=== PATIENT | female | born 1960 | race African-American/Black ===

== ENCOUNTER 2017-11-30 23:30 | Inpatient (IN) | payer MEDICAID, OTHER ==
[~2017-11-30] VITALS: Ht 175.3 cm; Wt 116.3 kg
[2017-12-01] VITALS (8 sets, daily range): BP systolic 93–131; BP diastolic 58–76
[2017-12-01] MEDS ORDERED: MORPHINE SULFATE 4 MG/ML CPJ (NOT FOR IM USE) IV SCH (00:13)
[2017-12-01] MEDS ORDERED: ACETAMINOPHEN 650MG SUPP PR SCH (00:13)
[2017-12-01] MEDS ORDERED: ONDANSETRON HCL 4MG/2ML INJ IV SCH (00:13)
[2017-12-01] MEDS ORDERED: SODIUM CHLORIDE 0.9% 1000ML BAG (SEPSIS BOLUS) IV ONE (00:15)
[2017-12-01] MEDS ORDERED: PIPERACILLIN/TAZ 3.375G PREMIX 50 ML IV SCH (00:45)
[2017-12-01] MEDS ORDERED: VANCOMYCIN 1 G PREMIX 200 ML IV SCH ×2 (00:46→10:30)
[2017-12-01 01:10] LABS: BG BASE EXCESS -0.4 mmol/L (-2.0-2.0); BG CARBOXYHEMOGLOBIN 0.3 % (0.5-1.5); BG DEOXYHEMOGLOBIN 3.8 % (0.0-5.0); BG FRACTION INSPIRED OXYGEN 21; BG HCO3 ACT 20.4 mmol/L (22.0-26.0); BG METHEMOGLOBIN 0.2 % (0.0-1.5); BG OXYGEN SATURATION 96.2 % (92.0-98.5); BG OXYHEMOGLOBIN 95.7 % (94.0-97.0); BG PCO2 23.2 mmHg (35.0-45.0); BG PH 7.561 (7.350-7.450); BG PO2 75.6 mmHg (75.0-100.0); BG SAMPLE SITE RIGHT RADIAL; BG TOTAL HEMOGLOBIN 11.8 g/dL (12.0-18.0); BG VENT MODE ROOM AIR
[2017-12-01 01:11] LABS: HEMATOCRIT. 32.6 % (36.0-48.0); HEMOGLOBIN. 10.7 g/dL (12.0-16.0); MEAN CORPUSCULAR HEMOGLOBIN 28.4 pg (28.0-32.0); MEAN CORPUSCULAR VOLUME 86.7 fL (81.0-99.0); MEAN PLATELET VOLUME 11.4 fl (7.4-10.4); PLATELET 325 x1000/uL (130-400); RED BLOOD CELL COUNT 3.76 mill/uL (4.2-5.4); RED CELL DISTRIBUTION WIDTH 17.9 % (11.6-14.6)
[2017-12-01 01:15] LABS: CHLORIDE 106 mEq/L (98-107); INR 1.1; PROTHROMBIN TIME 11.4 sec (9.1-11.1)
[2017-12-01 02:20] LABS: PLATELET ESTIMATE NORMAL
[2017-12-01] MEDS ORDERED: IOHEXOL-300 100 ML BOTTLE ONE (02:32)
[2017-12-01] MEDS ORDERED: ACETAMINOPHEN 325MG TABLET PO ONE (03:45)
[2017-12-01] MEDS ORDERED: FENTANYL CITRATE/PF 50MCG/ML 2ML VIAL IV ONE (05:30)
[2017-12-01] MEDS ORDERED: FENT1PAT3 TP (09:15)
[2017-12-01] MEDS ORDERED: MORP10DI10 PO (09:17)
[2017-12-01] MEDS ORDERED: INSU100I28 IV (09:18)
[2017-12-01] MEDS ORDERED: DIPHENHYDRAMINE 50MG/ML VIAL IV PRN (10:30)
[2017-12-01] MEDS ORDERED: DEXTROSE 50% WATER 50ML SYRINGE IV PRN (10:30)
[2017-12-01] MEDS ORDERED: ACETAMINOPHEN 650MG SUPP PR PRN (10:30)
[2017-12-01] MEDS ORDERED: IPRATROPIUM/ALBUTEROL 0.5-3(2.5)MG/3ML NEB INH PRN (10:30)
[2017-12-01] MEDS ORDERED: LORAZEPAM 0.5MG TABLET PO PRN (10:30)
[2017-12-01] MEDS ORDERED: BLOOD SUGAR DIAGNOSTIC STRIP TEST SCH (10:30)
[2017-12-01] MEDS: PANTOPRAZOLE SODIUM 40 MG/VIAL IV SCH (11:34)
[2017-12-01] MEDS: PIPERACILLIN/TAZ 3.375G PREMIX 50 ML IV SCH ×2 (12:12→20:22)
[2017-12-01] MEDS: BLOOD SUGAR DIAGNOSTIC STRIP TEST SCH ×3 (12:13→23:04)
[2017-12-01] MEDS: DEXT 5%/0.45% NACL KCL 20MEQ/L 1,000 ML IV SCH ×2 (12:57→23:04)
[2017-12-01] MEDS: VANCOMYCIN 1 G PREMIX 200 ML IV SCH ×2 (12:57→23:14)
[2017-12-01] MEDS: INSULIN LISPRO 100 UNITS/ML SUBCUT SCH ×3 (12:58→23:14)
[2017-12-01] MEDS ORDERED: INSULIN LISPRO 100 UNITS/ML SUBCUT SCH (13:00)
[2017-12-01] MEDS: ONDANSETRON HCL 4MG/2ML INJ IV PRN (22:58)
[2017-12-02] VITALS (13 sets, daily range): BP systolic 100–121; BP diastolic 51–85
[2017-12-02] MEDS: PIPERACILLIN/TAZ 3.375G PREMIX 50 ML IV SCH ×3 (03:04→20:55)
[2017-12-02] MEDS: INSULIN LISPRO 100 UNITS/ML SUBCUT SCH ×3 (06:00→18:00)
[2017-12-02] MEDS: BLOOD SUGAR DIAGNOSTIC STRIP TEST SCH ×3 (06:00→18:16)
[2017-12-02] MEDS: DEXT 5%/0.45% NACL KCL 20MEQ/L 1,000 ML IV SCH (10:01)
[2017-12-02] MEDS: PANTOPRAZOLE SODIUM 40 MG/VIAL IV SCH (10:02)
[2017-12-02] MEDS: MORPHINE SULFATE 4 MG/ML CPJ (NOT FOR IM USE) IV PRN ×3 (11:28→21:02)
[2017-12-02] MEDS: VANCOMYCIN 1 G PREMIX 200 ML IV SCH (12:38)
[2017-12-02 16:02] LABS: BASOPHILS % 0.5 % (0.0-2.0); EOSINOPHILS % 2.3 % (0.0-5.0); HEMATOCRIT. 30.2 % (36.0-48.0); HEMOGLOBIN. 9.9 g/dL (12.0-16.0); MEAN CORPUSCULAR HEMOGLOBIN 28.5 pg (28.0-32.0); MEAN CORPUSCULAR VOLUME 87.3 fL (81.0-99.0); MEAN PLATELET VOLUME 11.6 fl (7.4-10.4); MONOCYTES % 9.6 % (2.0-8.0); NEUTROPHILS % 73.6 % (40.0-76.0); PLATELET 266 x1000/uL (130-400); RED BLOOD CELL COUNT 3.46 mill/uL (4.2-5.4); RED CELL DISTRIBUTION WIDTH 18.5 % (11.6-14.6)
[2017-12-02 16:09] LABS: CHLORIDE 107 mEq/L (98-107)
[2017-12-02] MEDS: ONDANSETRON HCL 4MG/2ML INJ IV PRN (20:41)
[2017-12-03] MEDS ORDERED: PANTOPRAZOLE SODIUM 40 MG/VIAL IV SCH (09:00)
== END 2017-12-02 23:02 | disposition short-term general hospital (02) | DRG 872 ==
LOC: ER 23:30 → 5EST 12-01 05:15 → EDBEDREQ 12-01 05:22 → EDBEDREQTM 12-01 05:22 → ENRESERV 12-01 07:04 → 5EST 12-01 10:05
PROVIDERS: ADMIT Internal Medicine; ATTEND Internal Medicine
DX: A41.9 Sepsis, unspecified organism (principal); C25.9 Malignant neoplasm of pancreas, unspecified; E11.9 Type 2 diabetes mellitus without complications; I10 Essential (primary) hypertension; R13.10 Dysphagia, unspecified; Z82.49 Family history of ischemic heart disease and other diseases of the circulatory system; Z83.3 Family history of diabetes mellitus; Z88.8 Allergy status to other drugs, medicaments and biological substances
CPT/HCPCS: 36415; 36600; 71045; 74177; 80048; 80053; 82375; 82805; 82962; 83605; 83690; 85025; 85610; 87040; 87077; 87186; 93005; 96365; 96366; 96368; 96375; 99285; C9113; J1815; J2270; J2405; J2543; J3010; J3370; J7030; J7050; Q9967

== ENCOUNTER 2017-12-18 19:44 | Inpatient (IN) | payer OTHER ==
[~2017-12-18] VITALS: Ht 175.3 cm; Wt 97.1 kg
[2017-12-18] MEDS ORDERED: SODIUM CHLORIDE 0.9% 1,000 ML IV ONE (20:30)
[2017-12-18] MEDS ORDERED: VANCOMYCIN 1 G PREMIX 200 ML IV ONE (20:30)
[2017-12-18] MEDS ORDERED: SODIUM CHLORIDE 0.9% 1000ML BAG (SEPSIS BOLUS) IV ONE (20:30)
[2017-12-18] MEDS ORDERED: PIPERACILLIN/TAZ 3.375G PREMIX 50 ML IV ONE (20:30)
[2017-12-18] MEDS ORDERED: NOREPINEPHRINE 4 MG in DEXT 5% WATER 246 ML IV ONE (22:00)
[2017-12-18 22:01] LABS: BASOPHILS % 0.4 % (0.0-2.0); EOSINOPHILS % 0.4 % (0.0-5.0); HEMATOCRIT. 38.5 % (36.0-48.0); HEMOGLOBIN. 12.3 g/dL (12.0-16.0); LYMPHOCYTES % 15.5 % (20.0-50.0); MEAN CORPUSCULAR HEMOGLOBIN 27.7 pg (28.0-32.0); MEAN CORPUSCULAR VOLUME 86.8 fL (81.0-99.0); MEAN PLATELET VOLUME 12.6 fl (7.4-10.4); MONOCYTES % 6.8 % (2.0-8.0); NEUTROPHILS % 76.9 % (40.0-76.0); PLATELET 425 x1000/uL (130-400); RED BLOOD CELL COUNT 4.44 mill/uL (4.2-5.4); RED CELL DISTRIBUTION WIDTH 19.8 % (11.6-14.6)
[2017-12-18 22:05] LABS: CHLORIDE 88 mEq/L (98-107); CLARITY URINE TURBID (CLEAR); COLOR URINE ORANGE (YELLOW); KETONES URINE NEGATIVE (NEGATIVE); LEUKOCYTE ESTERASE URINE 1+ (NEGATIVE); NITRITE URINE POSITIVE (NEGATIVE); OCCULT BLOOD URINE TRACE (NEGATIVE); PROTEIN URINE 1+ (NEGATIVE); SPECIFIC GRAVITY URINE 1.022 (1.005-1.030); UROBILINOGEN URINE 0.2 E.U./dL (0.2-1.0)
[2017-12-18] MEDS ORDERED: NOREPINEPHRINE 4 MG in DEXT 5% WATER 246 ML IV NR (22:15)
[2017-12-18] MEDS ORDERED: ACETAMINOPHEN 325MG TABLET PO PRN (23:00)
[2017-12-18] MEDS ORDERED: ONDANSETRON HCL 4MG/2ML INJ IV PRN (23:00)
[2017-12-18 23:19] LABS: INR 1.9; PROTHROMBIN TIME 18.7 sec (9.1-11.1)
[2017-12-19] VITALS (86 sets, daily range): BP systolic 69–176; BP diastolic 30–95
[2017-12-19] MEDS: DEXT 5%/0.45% NACL 1000ML 1,000 ML IV SCH ×2 (03:16→13:39)
[2017-12-19] MEDS ORDERED: NOREPINEPHRINE 8 MG in DEXT 5% WATER 242 ML IV PRN (03:45)
[2017-12-19] MEDS: VANCOMYCIN 1 G PREMIX 200 ML IV SCH (05:13)
[2017-12-19] MEDS: PIPERACILLIN/TAZ 2.25G PREMIX 50 ML IV SCH ×3 (05:13→21:49)
[2017-12-19] MEDS ORDERED: PIPERACILLIN/TAZ 3.375G PREMIX 50 ML IV SCH (06:00)
[2017-12-19 06:26] LABS: BASOPHILS % 0.4 % (0.0-2.0); EOSINOPHILS % 0.3 % (0.0-5.0); HEMATOCRIT. 34.6 % (36.0-48.0); HEMOGLOBIN. 11.1 g/dL (12.0-16.0); LYMPHOCYTES % 9.2 % (20.0-50.0); MEAN CORPUSCULAR HEMOGLOBIN 27.6 pg (28.0-32.0); MEAN CORPUSCULAR VOLUME 85.9 fL (81.0-99.0); MEAN PLATELET VOLUME 12.8 fl (7.4-10.4); MONOCYTES % 5.5 % (2.0-8.0); NEUTROPHILS % 84.6 % (40.0-76.0); PLATELET 375 x1000/uL (130-400); RED BLOOD CELL COUNT 4.03 mill/uL (4.2-5.4); RED CELL DISTRIBUTION WIDTH 19.6 % (11.6-14.6)
[2017-12-19 07:00] LABS: CHLORIDE 89 mEq/L (98-107)
[2017-12-19] MEDS ORDERED: LIDOCAINE HCL 1% 10 MG/ML 10ML VIAL ONE (09:01)
[2017-12-19 10:05] LABS: INR 1.9; PARTIAL THROMBOPLASTIN TIME 33.2 sec (23.4-31.0); PROTHROMBIN TIME 18.7 sec (9.1-11.1)
[2017-12-19] MEDS ORDERED: PHYTONADIONE 10MG/ML AMP SUBCUT SCH (10:15)
[2017-12-19 11:29] LABS: HEPATITIS B CORE AB IGM NEGATIVE
[2017-12-19 11:30] LABS: HEPATITIS A AB IGM NEGATIVE (NEGATIVE)
[2017-12-19 12:09] LABS: HEPATITIS B SURFACE ANTIGEN NEGATIVE
[2017-12-19] MEDS ORDERED: DEXTROSE 50% WATER 50ML SYRINGE IV PRN (15:15)
[2017-12-19] MEDS ORDERED: BLOOD SUGAR DIAGNOSTIC STRIP TEST SCH (16:30)
[2017-12-19] MEDS ORDERED: INSULIN LISPRO 100 UNITS/ML SUBCUT SCH (17:00)
[2017-12-19] MEDS: INSULIN LISPRO 100 UNITS/ML SUBCUT SCH (23:24)
[2017-12-19] MEDS: BLOOD SUGAR DIAGNOSTIC STRIP TEST SCH (23:24)
[2017-12-20] VITALS (10 sets, daily range): BP systolic 87–136; BP diastolic 50–84
[2017-12-20] MEDS: DEXT 5%/0.45% NACL 1000ML 1,000 ML IV SCH ×3 (00:02→18:45)
[2017-12-20] MEDS: PIPERACILLIN/TAZ 2.25G PREMIX 50 ML IV SCH ×2 (06:01→14:00)
[2017-12-20] MEDS: VANCOMYCIN 1 G PREMIX 200 ML IV SCH (06:01)
[2017-12-20] MEDS: BLOOD SUGAR DIAGNOSTIC STRIP TEST SCH ×3 (06:19→18:45)
[2017-12-20] MEDS: INSULIN LISPRO 100 UNITS/ML SUBCUT SCH ×3 (06:23→18:00)
[2017-12-20 07:24] LABS: BASOPHILS % 0.7 % (0.0-2.0); EOSINOPHILS % 3.2 % (0.0-5.0); HEMATOCRIT. 29.7 % (36.0-48.0); HEMOGLOBIN. 9.6 g/dL (12.0-16.0); LYMPHOCYTES % 10.7 % (20.0-50.0); MEAN CORPUSCULAR HEMOGLOBIN 27.5 pg (28.0-32.0); MEAN CORPUSCULAR VOLUME 84.9 fL (81.0-99.0); MEAN PLATELET VOLUME 11.7 fl (7.4-10.4); MONOCYTES % 4.7 % (2.0-8.0); NEUTROPHILS % 80.7 % (40.0-76.0); PLATELET 243 x1000/uL (130-400)
== END 2017-12-20 21:40 | disposition short-term general hospital (02) | DRG 871 ==
LOC: ER 20:05 → MICUSO 22:26 → EDBEDREQTM 22:31 → EDBEDREQSVC 22:31 → EDBEDREQ 22:31 → ENRESERV 23:48 → 7WST 12-20 05:35
PROVIDERS: ADMIT Hospitalist; ATTEND Hospitalist
PROC: 5A1D70Z Performance of Urinary Filtration, Intermittent, Less than 6 Hours Per Day (ICD-10-PCS; 2017-12-19)
PROC: 06HM33Z Insertion of Infusion Device into Right Femoral Vein, Percutaneous Approach (ICD-10-PCS; 2017-12-19)
PROC: B54BZZA Ultrasonography of Right Lower Extremity Veins, Guidance (ICD-10-PCS; 2017-12-19)
PROC: 5A1D70Z Performance of Urinary Filtration, Intermittent, Less than 6 Hours Per Day (ICD-10-PCS; principal; 2017-12-20)
DX: A41.9 Sepsis, unspecified organism (principal); R65.21 Severe sepsis with septic shock; N17.0 Acute kidney failure with tubular necrosis; E43 Unspecified severe protein-calorie malnutrition; K72.00 Acute and subacute hepatic failure without coma; N39.0 Urinary tract infection, site not specified; D68.9 Coagulation defect, unspecified; K83.0 Cholangitis; C25.9 Malignant neoplasm of pancreas, unspecified; E87.6 Hypokalemia; I10 Essential (primary) hypertension; E11.9 Type 2 diabetes mellitus without complications; Z88.8 Allergy status to other drugs, medicaments and biological substances; Z68.31 Body mass index [BMI] 31.0-31.9, adult
CPT/HCPCS: 36415; 36569; 70450; 71045; 74176; 76937; 80048; 80053; 80076; 80202; 81003; 82962; 83605; 83690; 84484; 85025; 85610; 85730; 86705; 86709; 86803; 87040; 87070; 87077; 87086; 87186; 87205; 87340; 93005; 96365; 99291; C1752; J1815; J2543; J3370; J3430; J3490; J7030; J7060